=== PATIENT | male | born 1985 | race Caucasian/White ===

== ENCOUNTER 2020-11-29 20:14 | Emergency (ER) | payer BC ==
[2020-11-29] MEDS ORDERED: Sodium Chloride 0.9% 10 ML Syringe FLUSH PRN (20:20)
[2020-11-29] MEDS ORDERED: cloNIDine 0.1 MG Tab PO ONE (20:31)
[2020-11-29 20:51] LABS: CHLORIDE,CL 98 mmol/L (98-107); SODIUM,NA 139 mmol/L (136-145)
--- NOTE | 2020-11-29 21:11 | EDM.PDOC ---
ED HPI GENERAL MEDICAL PROBLEM - General Chief Complaint: Neuro Symptoms/Deficits Stated Complaint: numbness left leg and lips, heart flutter Time Seen by Provider: 11/29/20 20:25 Source of Information: Reports: Patient History Limitations: Reports: No Limitations - History of Present Illness INITIAL COMMENTS - FREE TEXT/NARRATIVE: Pt presents to ER with 7-10 days hx/o intermittent numbness in tingling in extremities, lips and head. Was seen in clinic several days ago and started on Lisinopril 5 mg a day No chest pain No other neuro symptoms Onset: Gradual Duration: Day(s):, Intermittent Location: Reports: Generalized - Related Data Allergies Allergy/AdvReac Type Severity Reaction Status Date / Time No Known Allergies Allergy Verified 11/29/20 20:32 Home Meds: Home Meds lisinopriL [Lisinopril] 5 mg PO DAILY 11/29/20 [History] Past Medical History Cardiovascular History: Reports: Hypertension Musculoskeletal History: Reports: Fracture, Other (See Below) Other Musculoskeletal History: right hand fracture Psychiatric History: Reports: Anxiety, Other (See Below) Other Psychiatric History: 11/2020 pt reports hair loss, insomnia, and anxiety from occupational stress - Infectious Disease History Infectious Disease History: Reports: None - Past Surgical History HEENT Surgical History: Reports: Other (See Below) Other HEENT Surgeries/Procedures: tooth absess with wisdom teeth removal scheduled Spring 2020 Social & Family History - Tobacco Use Tobacco Use Status *Q: Never Tobacco User - Recreational Drug Use Recreational Drug Use: No ED ROS GENERAL - Review of Systems Review Of Systems: See Below Constitutional: Reports: No Symptoms HEENT: Reports: No Symptoms Respiratory: Reports: No Symptoms Cardiovascular: Reports: No Symptoms GI/Abdominal: Reports: No Symptoms Musculoskeletal: Reports: No Symptoms Skin: Reports: No Symptoms Neurological: Reports: Numbness, Tingling Psychiatric: Reports: No Symptoms ED EXAM, NEURO - Physical Exam Exam: See Below Exam Limited By: No Limitations General Appearance: Alert, WD/WN Eye Exam: Bilateral Eye: EOMI, PERRL Neck: Supple Respiratory/Chest: Lungs Clear Cardiovascular: Regular Rate, Rhythm GI/Abdominal: Soft, Non-Tender Neurological: Alert, Normal Mood/Affect, No Motor/Sensory Deficits Extremities: Normal Inspection Psychiatric: Normal Affect, Normal Mood Course - Vital Signs Last Recorded V/S: Last Vital Signs Temp 97.7 F 11/29/20 20:16 Pulse 82 11/29/20 21:05 Resp 26 H 11/29/20 21:05 BP 151/104 H 11/29/20 21:05 Pulse Ox 99 11/29/20 21:05 - Orders/Labs/Meds Orders: Active Orders 24 hr Category Date Time Status EKG Documentation Completion [RC] ASDIRECTED Care 11/29/20 20:20 Active Peripheral IV Care [RC] . DIRECTED Care 11/29/20 20:20 Active Head wo Cont [CT] Stat Exams 11/29/20 20:16 Taken Sodium Chloride 0.9% [Saline Flush] Med 11/29/20 20:20 Active 10 ml FLUSH ASDIRECTED PRN Peripheral IV Insertion Adult [OM.PC] Routine Oth 11/29/20 20:20 Ordered Medication Orders Sodium Chloride (Saline Flush) 10 ml FLUSH ASDIRECTED PRN PRN Reason: Keep Vein Open Labs: Laboratory Tests 11/29/20 11/29/20 Range/Units 20:25 20:25 WBC 8.7 (4.0-10.2) K/uL RBC 5.13 (4.33-5.41) M/uL Hgb 15.2 (13.1-16.8) g/dL Hct 43.9 (39.0-49.0) % MCV 85.6 (84.0-98.0) fL MCH 29.6 (28.2-33.3) pg MCHC 34.6 (31.7-36.0) g/dL RDW 11.9 (11.2-14.1) % Plt Count 177 (150-350) K/uL Neut % (Auto) 70.9 (45.0-80.0) % Lymph % (Auto) 18.2 (10.0-50.0) % [place] % (Auto) 10.4 (2.0-14.0) % Eos % (Auto) 0.3 (0.0-5.0) % Baso % (Auto) 0.2 (0.0-2.0) % Neut # (Auto) 6.19 (1.40-7.00) K/uL Lymph # (Auto) 1.59 (0.50-3.50) K/uL [place] # (Auto) 0.91 (0.00-1.00) K/uL Eos # (Auto) 0.03 (0.00-0.50) K/uL Baso # (Auto) 0.02 (0.00-0.20) K/uL Sodium 139 (136-145) mmol/L Potassium 3.4 L (3.5-5.1) mmol/L Chloride 98 (98-107) mmol/L Carbon Dioxide 27.7 (21.0-32.0) mmol/L BUN 8 (7-18) mg/dL Creatinine 0.74 (0.51-1.17) mg/dL Est Cr Clr Drug Dosing 133.51 mL/min Estimated GFR (MDRD) > 60 mL/min Glucose 87 (74-106) mg/dL Calcium 9.2 (8.5-10.1) mg/dL Total Bilirubin 1.0 (0.2-1.0) mg/dL AST 38 H (15-37) U/L ALT 60 (12-78) U/L Alkaline Phosphatase 65 (46-116) IU/L Troponin I 0.000 (0.000-0.056) ng/mL Total Protein 8.3 H (6.4-8.2) g/dL Albumin 4.3 (3.4-5.0) g/dL Meds: Medications Generic Name Dose Route Start Last Admin Trade Name Freq PRN Reason Stop Dose Admin Sodium Chloride 10 ml 11/29/20 20:20 Saline Flush FLUSH ASDIRECTED PRN Keep Vein Open Discontinued Medications Generic Name Dose Route Start Last Admin Trade Name Freq PRN Reason Stop Dose Admin Clonidine HCl 0.1 mg 11/29/20 20:31 11/29/20 20:36 Catapres PO 11/29/20 20:32 0.1 mg ONETIME ONE Administration - Re-Assessments/Exams Free Text/Narrative Re-Assessment/Exam: 11/29/20 21:09 Pt stable in ER See lab CT negative Pt hypertensive Given Clonidine 01. mg PO in ER Departure - Departure Time of Disposition: 21:15 Disposition: Home, Self-Care 01 Clinical Impression: Hypertension Qualifiers: Hypertension type: essential hypertension Qualified Code(s): I10 - Essential (primary) hypertension - Discharge Information *PRESCRIPTION DRUG MONITORING PROGRAM REVIEWED*: Not Applicable *COPY OF PRESCRIPTION DRUG MONITORING REPORT IN PATIENT FRANCISCO: Not Applicable Instructions: Hypertension, Adult, [id number] Referrals: Stephanie Rogers PA [Primary Care Provider] - Additional Instructions: Increase Lisinopril to 10 mg a day Follow up in clinic Sepsis Event Note (ED) - Evaluation Sepsis Screening Result: No Definite Risk - Focused Exam Vital Signs: Vital Signs Temp Pulse Resp BP BP Pulse Ox 11/29/20 21:05 82 26 H 151/104 H 99 11/29/20 20:50 87 25 H 163/109 H 98 11/29/20 20:36 156/96 H 11/29/20 20:35 89 19 156/96 H 98 11/29/20 20:16 97.7 F 81 22 H 168/105 H 99 - My Orders Last 24 Hours: My Active Orders 11/29/20 20:16 Head wo Cont [CT] Stat 11/29/20 20:20 EKG Documentation Completion [RC] ASDIRECTED Peripheral IV Care [RC] . DIRECTED Sodium Chloride 0.9% [Saline Flush] 10 ml FLUSH ASDIRECTED PRN Peripheral IV Insertion Adult [OM.PC] Routine - Assessment/Plan Last 24 Hours: My Active Orders 11/29/20 20:16 Head wo Cont [CT] Stat 11/29/20 20:20 EKG Documentation Completion [RC] ASDIRECTED Peripheral IV Care [RC] . DIRECTED Sodium Chloride 0.9% [Saline Flush] 10 ml FLUSH ASDIRECTED PRN Peripheral IV Insertion Adult [OM.PC] Routine
== END 2020-11-29 21:27 | disposition home or self-care (01) ==
LOC: LL.ED 20:14
DX: I10 Essential (primary) hypertension (principal); Z79.899 Other long term (current) drug therapy
CPT/HCPCS: 36415; 70450; 80053; 84484; 85025; 93005; 99283; 99284-25; A9270-GY